=== PATIENT | female | born 1960 | race Caucasian/White ===

== ENCOUNTER 2017-08-15 11:43 | Outpatient (CLI) | payer OTHER | END 2017-08-15 11:44 | disposition home or self-care (01) | LOC: LAB 11:43 | DX: R50.9 Fever, unspecified (principal) ==

== ENCOUNTER → 2017-08-15 | Outpatient (CLI) | payer OTHER ==
[~2017-08-15] MED LIST: ANTIVERT25 M1 PO; AVAPRO150 MG; AVAPRO150 MG PO; COZAAR50 MG PO; DEMEBORO; FLEXERIL10 MG PO; FLOVENT 110MCG7.9 GM IH; FLOVENT DISKU250 MCG; FLOVENT HFA12 G1 IH; GILTUSS TR TAB1 EACH PO; LIPITOR20 MG; LIPO-FLAVONOID1 EACH PO; PROVENTIL HFA6.7 GM IH; VOLTAREM 50 MG PO; ZITHROMAX500 MG PO
== END | disposition home or self-care (01) ==
LOC: PPHC 10:49
DX: B34.9 Viral infection, unspecified (principal)

== ENCOUNTER → 2017-09-29 | Outpatient (CLI) | payer OTHER | END | disposition home or self-care (01) | LOC: PPHC 14:27 | DX: Z00.8 Encounter for other general examination (principal) ==

== ENCOUNTER 2017-10-17 14:55 | Outpatient (CLI) | payer OTHER | END 2017-10-17 15:07 | disposition home or self-care (01) | LOC: SONOGRAMA 14:55 | DX: M79.671 Pain in right foot (principal); M79.672 Pain in left foot ==

== ENCOUNTER 2017-10-17 15:21 | Outpatient (CLI) | payer OTHER | END 2017-10-17 15:36 | disposition home or self-care (01) | LOC: RAD 15:21 | DX: M79.671 Pain in right foot (principal); M79.672 Pain in left foot ==

== ENCOUNTER → 2018-02-17 07:07 | Outpatient (CLI) | payer OTHER | END | disposition home or self-care (01) | LOC: LAB 07:07 | DX: E78.2 Mixed hyperlipidemia (principal); I11.9 Hypertensive heart disease without heart failure; E55.9 Vitamin D deficiency, unspecified ==

== ENCOUNTER 2018-03-13 11:55 | Outpatient (CLI) | payer OTHER | END 2018-03-13 12:01 | disposition home or self-care (01) | LOC: MAMO-SONO 11:55 | DX: Z12.31 Encounter for screening mammogram for malignant neoplasm of breast (principal); N60.11 Diffuse cystic mastopathy of right breast; N60.12 Diffuse cystic mastopathy of left breast ==

== ENCOUNTER 2018-06-14 14:58 | Outpatient (CLI) | payer OTHER | END 2018-06-14 15:13 | disposition home or self-care (01) | LOC: LAB 14:58 | DX: J11.1 Influenza due to unidentified influenza virus with other respiratory manifestations (principal); J20.0 Acute bronchitis due to Mycoplasma pneumoniae ==

== ENCOUNTER 2018-07-20 13:27 | Outpatient (CLI) | payer OTHER | END 2018-07-20 13:29 | disposition home or self-care (01) | LOC: MAMO-SONO 13:27 | DX: S86.011A Strain of right Achilles tendon, initial encounter (principal); S76.821A Laceration of other specified muscles, fascia and tendons at thigh level, right thigh, initial encounter ==

== ENCOUNTER 2018-10-24 11:50 | Emergency (ER) | payer OTHER ==
[~2018-10-24] VITALS: Ht 162.6 cm; Wt 100.7 kg
== END 2018-10-24 12:40 | disposition home or self-care (01) ==
LOC: ER 11:50
DX: Z23 Encounter for immunization (principal)

== ENCOUNTER 2019-02-22 07:07 | Outpatient (CLI) | payer OTHER | END 2019-02-22 07:25 | disposition home or self-care (01) | LOC: NUCLEAR 07:07 | DX: R60.0 Localized edema (principal); I11.0 Hypertensive heart disease with heart failure | CPT/HCPCS: 78452; 93017; A9500 ==

== ENCOUNTER 2019-02-26 07:10 | Outpatient (CLI) | payer OTHER | END 2019-02-26 07:17 | disposition home or self-care (01) | LOC: LAB 07:10 | DX: D64.89 Other specified anemias (principal); N39.0 Urinary tract infection, site not specified; R10.84 Generalized abdominal pain; E03.8 Other specified hypothyroidism; E78.49 Other hyperlipidemia; E55.9 Vitamin D deficiency, unspecified; R73.09 Other abnormal glucose; I10 Essential (primary) hypertension ==

== ENCOUNTER 2019-04-03 14:04 | Outpatient (CLI) | payer OTHER | END 2019-04-03 14:05 | disposition home or self-care (01) | LOC: RAD 14:04 | DX: M54.89 Other dorsalgia (principal) ==

== ENCOUNTER 2019-07-23 10:02 | Outpatient (CLI) | payer OTHER | END 2019-07-23 10:22 | disposition home or self-care (01) | LOC: LAB 10:02 | DX: E03.8 Other specified hypothyroidism (principal) ==

== ENCOUNTER 2019-07-27 07:10 | Outpatient (CLI) | payer OTHER | END 2019-07-27 07:15 | disposition home or self-care (01) | LOC: LAB 07:10 | DX: E66.8 Other obesity (principal); R00.2 Palpitations; I10 Essential (primary) hypertension; R06.00 Dyspnea, unspecified; E78.49 Other hyperlipidemia; D64.89 Other specified anemias; N39.0 Urinary tract infection, site not specified; R10.84 Generalized abdominal pain; E03.8 Other specified hypothyroidism; E11.9 Type 2 diabetes mellitus without complications ==

== ENCOUNTER 2019-08-06 14:07 | Outpatient (CLI) | payer OTHER | END 2019-08-06 14:21 | disposition home or self-care (01) | LOC: RAD 14:07 | DX: M79.642 Pain in left hand (principal); M79.641 Pain in right hand ==

== ENCOUNTER → 2019-12-10 12:59 | Outpatient (CLI) | payer OTHER | END | disposition home or self-care (01) | LOC: LAB 12:59 | PROVIDERS: ATTEND Internal Medicine Cardiovascular Disease | DX: Z03.818 Encounter for observation for suspected exposure to other biological agents ruled out (principal); Z20.828 Contact with and (suspected) exposure to other viral communicable diseases ==

== ENCOUNTER → 2019-12-31 07:07 | Outpatient (CLI) | payer OTHER | END | disposition home or self-care (01) | LOC: LAB 07:07 | PROVIDERS: ATTEND Internal Medicine Cardiovascular Disease | DX: R06.09 Other forms of dyspnea (principal); E03.8 Other specified hypothyroidism; E66.8 Other obesity; I10 Essential (primary) hypertension; E78.49 Other hyperlipidemia; D64.89 Other specified anemias; N39.0 Urinary tract infection, site not specified; E11.9 Type 2 diabetes mellitus without complications ==

== ENCOUNTER 2020-02-12 08:00 | Outpatient (CLI) | payer OTHER | END 2020-02-12 15:00 | disposition home or self-care (01) | LOC: PPH VACUNA 08:00 | DX: Z23 Encounter for immunization (principal) ==

== ENCOUNTER 2020-04-29 11:09 | Outpatient (CLI) | payer OTHER | END 2020-04-29 11:11 | disposition home or self-care (01) | LOC: SONOGRAMA 11:09 | DX: E04.1 Nontoxic single thyroid nodule (principal); C73 Malignant neoplasm of thyroid gland ==

== ENCOUNTER 2020-05-01 07:05 | Outpatient (CLI) | payer OTHER | END 2020-05-01 07:09 | disposition home or self-care (01) | LOC: LAB 07:05 | PROVIDERS: ATTEND Internal Medicine Cardiovascular Disease | DX: D64.89 Other specified anemias (principal); N39.0 Urinary tract infection, site not specified; E03.8 Other specified hypothyroidism; R10.84 Generalized abdominal pain; E78.49 Other hyperlipidemia; E55.9 Vitamin D deficiency, unspecified; E11.9 Type 2 diabetes mellitus without complications; I10 Essential (primary) hypertension; Z13.6 Encounter for screening for cardiovascular disorders; E04.1 Nontoxic single thyroid nodule ==

== ENCOUNTER 2020-06-09 07:16 | Emergency (ER) | payer OTHER ==
[~2020-06-09] VITALS: Ht 162.6 cm; Wt 111.6 kg
[2020-06-09] MEDS ORDERED: ATACAND32 MG PO (07:39)
== END 2020-06-09 08:53 | disposition home or self-care (01) ==
LOC: ER 07:16
DX: S51.851A Open bite of right forearm, initial encounter (principal); W54.0XXA Bitten by dog, initial encounter; Y93.89 Activity, other specified; Y92.89 Other specified places as the place of occurrence of the external cause; Y99.8 Other external cause status

== ENCOUNTER → 2020-09-22 09:00 | Outpatient (CLI) | payer OTHER ==
[~2020-09-22 09:00] MED LIST changes: +ATACAND32 MG PO
== END | disposition home or self-care (01) ==
LOC: LAB 09:00
PROVIDERS: ATTEND Internal Medicine Cardiovascular Disease
DX: I10 Essential (primary) hypertension (principal); Z13.6 Encounter for screening for cardiovascular disorders

== ENCOUNTER → 2021-01-19 07:03 | Outpatient (CLI) | payer OTHER | END | disposition home or self-care (01) | LOC: LAB 07:03 | PROVIDERS: ATTEND Internal Medicine Cardiovascular Disease | DX: D64.89 Other specified anemias (principal); N39.0 Urinary tract infection, site not specified; E03.8 Other specified hypothyroidism; E78.49 Other hyperlipidemia; E55.9 Vitamin D deficiency, unspecified; E11.9 Type 2 diabetes mellitus without complications; I10 Essential (primary) hypertension; R10.84 Generalized abdominal pain ==

== ENCOUNTER → 2021-02-12 07:13 | Outpatient (CLI) | payer OTHER | END | disposition home or self-care (01) | LOC: LAB 07:13 | PROVIDERS: ATTEND Internal Medicine Cardiovascular Disease | DX: E03.8 Other specified hypothyroidism (principal) ==

== ENCOUNTER → 2021-02-24 | Outpatient (CLI) | payer OTHER | END | disposition home or self-care (01) | LOC: PPH VACUNA 08:00 | PROVIDERS: ATTEND Emergency Medicine Pediatric Emergency Medicine | DX: Z23 Encounter for immunization (principal) ==

== ENCOUNTER 2021-03-03 08:00 | Outpatient (CLI) | payer OTHER | END 2021-03-03 08:30 | disposition home or self-care (01) | LOC: PPH VACUNA 08:00 | PROVIDERS: ATTEND Emergency Medicine Pediatric Emergency Medicine | DX: Z23 Encounter for immunization (principal) ==

== ENCOUNTER → 2021-03-11 | Outpatient (CLI) | payer OTHER | END | disposition home or self-care (01) | LOC: MAMO-SONO 05-02 13:30 | PROVIDERS: ATTEND Internal Medicine Cardiovascular Disease | DX: N64.89 Other specified disorders of breast (principal); N64.4 Mastodynia; Z12.31 Encounter for screening mammogram for malignant neoplasm of breast ==

== ENCOUNTER → 2021-04-27 07:20 | Outpatient (CLI) | payer OTHER | END | disposition home or self-care (01) | LOC: LAB 07:20 | PROVIDERS: ATTEND Internal Medicine Cardiovascular Disease | DX: D64.89 Other specified anemias (principal); N39.0 Urinary tract infection, site not specified; R10.84 Generalized abdominal pain; E03.8 Other specified hypothyroidism; E78.49 Other hyperlipidemia; E55.9 Vitamin D deficiency, unspecified; R73.09 Other abnormal glucose; I10 Essential (primary) hypertension; Z13.6 Encounter for screening for cardiovascular disorders ==

== ENCOUNTER 2021-09-18 15:44 | Outpatient (CLI) | payer OTHER | END 2021-09-18 15:53 | disposition home or self-care (01) | LOC: LAB 15:44 | PROVIDERS: ATTEND Internal Medicine | DX: U07.1 COVID-19 (principal) ==

== ENCOUNTER 2021-09-24 08:00 | Outpatient (CLI) | payer OTHER | END 2021-09-24 08:30 | disposition home or self-care (01) | LOC: PPH VACUNA 08:00 | PROVIDERS: ATTEND Emergency Medicine Pediatric Emergency Medicine | DX: Z23 Encounter for immunization (principal) ==

== ENCOUNTER 2021-12-16 13:47 | Outpatient (CLI) | payer OTHER | END 2021-12-16 13:48 | disposition home or self-care (01) | LOC: LAB 13:47 | PROVIDERS: ATTEND Internal Medicine Cardiovascular Disease | DX: Z02.79 Encounter for issue of other medical certificate (principal) ==

== ENCOUNTER 2022-01-27 08:00 | Outpatient (CLI) | payer OTHER | END 2022-01-27 08:05 | disposition home or self-care (01) | LOC: PPH VACUNA 08:00 | PROVIDERS: ATTEND Emergency Medicine Pediatric Emergency Medicine | DX: Z23 Encounter for immunization (principal) ==

== ENCOUNTER 2022-08-26 06:53 | Outpatient (CLI) | payer OTHER | END 2022-08-26 06:59 | disposition home or self-care (01) | LOC: LAB 06:53 | PROVIDERS: ATTEND Psychiatry & Neurology Neurology | DX: E51.9 Thiamine deficiency, unspecified (principal); E78.2 Mixed hyperlipidemia; I10 Essential (primary) hypertension; G51.39 Clonic hemifacial spasm, unspecified ==

== ENCOUNTER 2022-09-08 09:03 | Outpatient (CLI) | payer OTHER | END 2022-09-08 09:13 | disposition home or self-care (01) | LOC: MRI 09:03 | PROVIDERS: ATTEND Psychiatry & Neurology Neurology | DX: G51.39 Clonic hemifacial spasm, unspecified (principal); J45.20 Mild intermittent asthma, uncomplicated | CPT/HCPCS: 70551 ==

== ENCOUNTER 2022-12-01 08:03 | Outpatient (CLI) | payer OTHER | END 2022-12-01 10:19 | disposition home or self-care (01) | LOC: LAB 08:03 | PROVIDERS: ATTEND Psychiatry & Neurology Neurology | DX: D51.9 Vitamin B12 deficiency anemia, unspecified (principal) ==

== ENCOUNTER 2023-02-18 09:22 | Outpatient (CLI) | payer OTHER | END 2023-02-18 09:32 | disposition home or self-care (01) | LOC: PPH VACUNA 09:22 | PROVIDERS: ATTEND Emergency Medicine Pediatric Emergency Medicine | DX: Z23 Encounter for immunization (principal) ==

== ENCOUNTER 2023-04-04 12:08 | Outpatient (CLI) | payer OTHER | END 2023-04-04 12:09 | disposition home or self-care (01) | LOC: LAB 12:08 | PROVIDERS: ATTEND Psychiatry & Neurology Neurology | DX: D51.9 Vitamin B12 deficiency anemia, unspecified (principal); Z16.23 Resistance to quinolones and fluoroquinolones; Z88.3 Allergy status to other anti-infective agents ==

== ENCOUNTER 2024-03-30 04:30 | Outpatient (CLI) | payer OTHER ==
[~2024-03-30 04:30] MED LIST changes: +GABAPENTIN300 M2 PO
== END 2024-03-30 05:00 | disposition home or self-care (01) ==
LOC: PPH VACUNA 04:30
PROVIDERS: ATTEND Emergency Medicine Pediatric Emergency Medicine
DX: Z23 Encounter for immunization (principal)

== ENCOUNTER 2025-01-15 10:45 | Outpatient (CLI) | payer OTHER ==
[~2025-01-15 10:45] MED LIST changes: +CYCLOBENZAPRINE10 MG PO; +DICLOFENAC POTA50 MG PO
[2025-01-17 05:07] LABS: HEPATITIS A ANTIBODY IGG Negative (Negative); HEPATITIS B SURFACE ANTIBODY Reactive (.); HEPATITIS C VIRUS ANTIBODY Non Reactive (Non Reactive)
== END 2025-01-15 10:47 | disposition home or self-care (01) ==
LOC: LAB 10:45
DX: A64 Unspecified sexually transmitted disease (principal); B19.9 Unspecified viral hepatitis without hepatic coma

== ENCOUNTER 2025-02-25 11:10 | Outpatient (CLI) | payer OTHER | END 2025-02-25 11:11 | disposition home or self-care (01) | LOC: RAD 11:10 | PROVIDERS: ATTEND Internal Medicine Pulmonary Disease | DX: J45.30 Mild persistent asthma, uncomplicated (principal) ==

== ENCOUNTER 2025-03-13 14:20 | Outpatient (CLI) | payer OTHER | END 2025-03-13 14:30 | disposition home or self-care (01) | LOC: PPH VACUNA 14:20 | PROVIDERS: ATTEND Emergency Medicine Pediatric Emergency Medicine | DX: Z23 Encounter for immunization (principal) ==